=== PATIENT | male | born 1950 | race Caucasian/White ===

== ENCOUNTER 2021-04-20 20:02 | Observation (INO) | payer MEDICARE, OTHER ==
[~2021-04-20] VITALS: Ht 193 cm; Wt 133.4 kg
--- NOTE | ~2021-04-20 | EMS ---
[facility] [address] [place] [address] EMS Patient Care Report Name: MITCH YAÑEZ Room: [address] Stevie#: [id number] Admission: 04/20/21 Attend Phys: Lyly Caldera MD Discharge: 04/21/21 Date of : 52 Report #: [id number] THIS REPORT FOR: //name// Report Transmitted: 04/23/2021 14:37 EMS Care Summary [place] Incident [id number] @ 04/20/2021 19:08 Incident [address] [place] [address] [place] [address] Patient Mitch Yañez Male, 71 Years 1950 Patient Address [address] [id number] Patient History Presence of artificial hip joint,Presence of artificial knee joint, Patient Allergies No known allergies, Patient Medications Finasteride, Tamsulosin, Diclofenac, Chief Complaint Fainting/Syncope Disposition Transported No Lights/[place] Reason Unconscious/Fainting Transported To [facility] Narrative [id number] dispatched to stated location, [facility], for unresponsive male. On arrival to the scene pt was found lying on the floor on his right side. Bystanders advised that he had a period of unresponsiveness lasting approximately 5 minutes. During that time, pt lost control of his bladder and [facility] [address] [place] [address] EMS Patient Care Report Name: MITCH YAÑEZ [address]: [address]#: [id number] Admission: 04/20/21 Attend Phys: Lyly Caldera MD Discharge: 04/21/21 Date of : 52 Report #: [id number] vomited. When we arrived, he was beginning to wake up slowly, and as he became more alert and oriented, advised that he felt that he had had too much alcohol, leading to the loss of consciousness. Pt's adamantly advised that there was something wrong with him, and that she has seen him drink much more alcohol than he had without losing consciousness. Pt initially indicated that he felt fine and did not want to be transported, but eventually agreed to transport. Pt was assisted from the floor to a chair, then to the stretcher, where he was secured for transport. Once on board, vital signs and interventions were as noted. Pt was hypotensive, with fluids administered as noted. He also advised that he still felt nauseated, and had a bout of dry heaving. Antiemetic administered as noted elsewhere. Just prior to transport, the pt's advised that 2-3 years ago, he had an episode of syncope that was determined to be related to a drop in blood pressure. Pt rested comfortably during transport, but did advise that he felt "like shit." no change in overall condition noted during transport. In person handoff report given to receiving nurse as indicated. Pt care transferred without incident. Unit in service. End of report Latonia Lloyd [id number] Initial Vitals @19:20SpO2: 99, @19:31SpO2: 96, @19:41SpO2: 92, @19:54SpO2: 97, @19:56SpO2: 98, @19:15SpO2: 100, @19:32 @19:39 @19:31P: 77,R: 14,BP: 102/69, @19:41P: 67,R: 18,BP: 90/60, @19:54P: 63,R: 14,BP: 127/60, @19:31GCS: 15, @19:41GCS: 15, @19:54GCS: 15, @19:39Glucose: 128, Assessments @19:15MENTAL:SKIN:HEENT:LUNG SOUNDS:ABDOMEN:PELVIS//GI:EXTREMITIES:PULSE:NEURO: Impression Hypotension Procedures @19:38Ondansetron - 4.000 Milligrams (mg) - Intramuscular (IM)Response: Improved@19:37 cc () Site: Antecubital-LeftResponse: UnchangedSucceeded@19:3212-Lead ECGResponse: UnchangedSucceeded@19:3912-[place] [address] EMS Patient Care Report Name: MITCH YAÑEZ Room: [address] M[address]RAaron#: [id number] Admission: 04/20/21 Attend Phys: Lyly Caldera MD Discharge: 04/21/21 Date of : 52 Report #: [id number] ECGResponse: UnchangedSucceeded Timeline 19:08,Call Received 19:08,Dispatch Notified 19:,Psap Call 19:08,Dispatched 19:09,En Route 19:13,On Scene 19:15,At Patient 19:15,BP: / M,PULSE: ,RR: R,SPO2: 100 Ox,ETCO2: ,BG: ,PAIN: ,GCS: , 19:20,BP: / M,PULSE: ,RR: R,SPO2: 99 Ox,ETCO2: ,BG: ,PAIN: ,GCS: , 19:31,BP: / M,PULSE: ,RR: R,SPO2: 96 Ox,ETCO2: ,BG: ,PAIN: ,GCS: , 19:31,BP: 102/69 M,PULSE: 77,RR: 14 R,SPO2: Ox,ETCO2: ,BG: ,PAIN: ,GCS: , 19:31,BP: / M,PULSE: ,RR: R,SPO2: Ox,ETCO2: ,BG: ,PAIN: ,GCS: 15, 19:32,12-Lead ECG,Response: UnchangedSucceeded, 19:32,BP: / M,PULSE: ,RR: R,SPO2: Ox,ETCO2: ,BG: ,PAIN: ,GCS: , 19:37, cc Site: Antecubital-Left,Response: UnchangedSucceeded, 19:38,Ondansetron - 4.000 Milligrams (mg) - Intramuscular (IM),Response: Improved 19:39,12-Lead ECG,Response: UnchangedSucceeded, 19:39,BP: / M,PULSE: ,RR: R,SPO2: Ox,ETCO2: ,BG: ,PAIN: ,GCS: , 19:39,BP: / M,PULSE: ,RR: R,SPO2: Ox,ETCO2: ,B,PAIN: ,GCS: , 19:41,BP: / M,PULSE: ,RR: R,SPO2: 92 Ox,ETCO2: ,BG: ,PAIN: ,GCS: , 19:41,BP: 90/60 M,PULSE: 67,RR: 18 R,SPO2: Ox,ETCO2: ,BG: ,PAIN: ,GCS: , 19:41,BP: / M,PULSE: ,RR: R,SPO2: Ox,ETCO2: ,BG: ,PAIN: ,GCS: 15, 19:42,Depart Scene 19:54,BP: / M,PULSE: ,RR: R,SPO2: 97 Ox,ETCO2: ,BG: ,PAIN: ,GCS: , 19:54,BP: 127/60 M,PULSE: 63,RR: 14 R,SPO2: Ox,ETCO2: ,BG: ,PAIN: ,GCS: , 19:54,BP: / M,PULSE: ,RR: R,SPO2: Ox,ETCO2: ,BG: ,PAIN: ,GCS: 15, 19:55,At Destination 19:56,BP: / M,PULSE: ,RR: R,SPO2: 98 Ox,ETCO2: ,BG: ,PAIN: ,GCS: , 20:16,Call Closed Disclaimer v1.1 Copyright 2020 [employer] This EMS Care Summary contains data elements from the applicable legal record (which may be displayed differently). It is designed to provide pertinent information for the following purposes: continuity of care, clinical quality, and state data reporting. The complete legal record is available to ED staff and administrators of the receiving hospital in [employer] Patient Tracker. All data is provided "as is."
[2021-04-20 20:06] VITALS: BP 104/59
[2021-04-20] MEDS ORDERED: CHILDREN'S ASPI81 MG PO (20:21)
[2021-04-20] MEDS ORDERED: PENNSAID112 GM TOP (20:22)
[2021-04-20] MEDS ORDERED: FLOMAX0.4 MG PO (20:22)
[2021-04-20] MEDS ORDERED: VALSARTAN-HCTZ1 EAC1 PO (20:23)
[2021-04-20] MEDS ORDERED: PROSCAR 5MG TABL5 M1 PO (20:23)
[2021-04-20] MEDS ORDERED: COZAAR 25 MG TA25 M1 PO (20:23)
[2021-04-20 20:27] LABS: ABSOLUTE EOSINOPHILS 0.1 thou/uL (0.0-0.7); ABSOLUTE LYMPHOCYTES 0.9 thou/uL (0.8-5.3); ABSOLUTE MONOCYTES 0.5 thou/uL (0.0-1.2); ABSOLUTE NEUTROPHILS 3.6 thou/uL (1.6-8.1); BASOPHILS 0.8 %; HEMATOCRIT 33.9 % (42.0-52.0); HEMOGLOBIN 11.6 gm/dL (14.0-18.0); LYMPHOCYTES 17.4 %; MCH 31.8 pg (26.0-34.0); MCHC 34.2 g/dL (28.0-37.0); MONOCYTES 9.1 %; MPV 6.3 fl. (7.2-11.1); NUCLEATED RBCS 0 /100WBC; PLATELET COUNT* 299 thou/uL (150-400); POLYS 70.7 %; RBC 3.65 mil/uL (4.50-6.00); RDW-CV 13.5 % (10.5-14.5); WBC 5.2 thou/uL (4.0-11.0)
[2021-04-20 20:35] LABS: CALCIUM 8.7 mg/dL (8.5-10.1); POTASSIUM 3.5 mmol/L (3.5-5.1)
[2021-04-20 20:45] LABS: ALBUMIN 3.4 g/dL (3.4-5.0); MAGNESIUM 1.9 mg/dL (1.8-2.4); TOTAL BILIRUBIN 0.5 mg/dL (<0.1-1.0); TOTAL PROTEIN 6.8 g/dL (6.4-8.2)
[2021-04-21] VITALS (7 sets, daily range): BP systolic 104–128; BP diastolic 54–73
[2021-04-21] MEDS ORDERED: DICLOFENAC SODI75 MG PO (01:14)
[2021-04-21] MEDS ORDERED: MULTIVITAMINS1 EAC6 PO (01:16)
--- NOTE | 2021-04-21 07:39 | NUR ---
RECEIVED REPORT FROM ED RN. PT TRANSFERRED TO RM 230. PT A&OX4. VSS. 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 ADMISSION HISTORY & PHYSICAL ASSESSMENT COMPLETED AND CHARTED. PT ON RA. PT TRACING SR/1ST DEG ON TELE. PT UPSTANDBY TO RESTROOM. FALL PRECAUTIONS IN PLACE. CALL LIGHT WITHIN REACH.
[2021-04-21 09:34] LABS: CALCIUM 8.4 mg/dL (8.5-10.1); CREATININE 0.9 mg/dL (0.6-1.3); POTASSIUM 4.2 mmol/L (3.5-5.1)
[2021-04-21] MEDS ORDERED: VALSARTAN160 MG PO (10:50)
--- NOTE | 2021-04-22 14:13 | EKG ---
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: FLOYD : 1950 Requested By: Rand Parson Order Number: [id number] MD: Luis Antonio Lam Measurements Intervals [place] Rate: 63 P: 27 ME: 227 QRS: -36 QRSD: 119 T: 35 QT: 427 QTc: 438 Interpretive Statements Sinus rhythm Prolonged ME interval Left anterior fascicular block no previous ECG available for comparison Electronically Signed On 04-22-2021 14:13:25 CDT by LuisA ntonio Lam [email or web address] <ELECTRONICALLY SIGNED> By: Luis Antonio Lam MD, FACC 04/22/21 1413 32 32 Luis Antonio Lam MD, [facility] /EPI
== END 2021-04-21 15:45 | disposition home or self-care (01) ==
LOC: M.ERS 20:02 → M.TBA-ER 22:18 → M.2W 23:06
PROVIDERS: Emergency Medicine; Internal Medicine; ADMIT Internal Medicine; ATTEND Internal Medicine
DX: R55 Syncope and collapse (principal); Z20.822 Contact with and (suspected) exposure to COVID-19; E86.0 Dehydration; E87.1 Hypo-osmolality and hyponatremia; E87.8 Other disorders of electrolyte and fluid balance, not elsewhere classified; I10 Essential (primary) hypertension; E78.00 Pure hypercholesterolemia, unspecified; Z96.652 Presence of left artificial knee joint; Z79.899 Other long term (current) drug therapy